=== PATIENT | female | born 1940 | race Caucasian/White ===

== ENCOUNTER 2018-03-08 06:35 | Day surgery (SDC) | payer MEDICARE, OTHER ==
[2018-03-08] MEDS ORDERED: fentaNYL 100 MCG/2 ML SDV ONE (06:49)
[2018-03-08] MEDS ORDERED: Midazolam 1 MG/ML 2 ML SDV ONE (06:49)
[2018-03-08] MEDS ORDERED: Propofol 200 MG/20 ML SDV ONE (06:49)
[2018-03-08] MEDS ORDERED: Lactated Ringers 1,000 ML IV SCH (07:00)
[2018-03-08 09:24] VITALS: BP 153/67
--- NOTE | 2018-03-08 12:40 | OR ---
DATE OF PROCEDURE: 03/08/2018 PREOPERATIVE DIAGNOSIS: History of colon polyps. POSTOPERATIVE DIAGNOSES: Diverticulosis, cecal polyp, history of polyps. PROCEDURE: Colonoscopy to the cecum with biopsy resection of cecal polyp. SURGEON: Joel Guzmán M.D. ANESTHESIA: IV anesthesia with monitored anesthesia care. INDICATION: This 77-year-old white female is referred for a colonoscopy because of a history of colon polyps. She says her last colonoscopic exam was done about 3 years ago. I counseled her for the procedure, including risks and alternatives, and she gave her informed consent to proceed. DESCRIPTION OF PROCEDURE: The patient was placed in the left lateral decubitus position. IV anesthesia was administered by the Anesthesia Service. Time-out was held. A rectal exam was performed, which was unremarkable. The flexible video Olympus colonoscope was introduced through her anus, up her rectum, and out her colon, all the way to the cecum. En route, we saw a few scattered left-sided diverticula. There was no bleeding or inflammation associated with them. In the cecum, we saw a sessile polyp that was fairly small. We removed this with multiple bites of the biopsy forceps. The scope was then slowly withdrawn, examining the mucosa throughout. No additional mucosal abnormalities were noted. The scope was retroflexed in the rectum with the distal rectum appearing unremarkable. The scope was straightened and removed. She tolerated the procedure well. Joel Guzmán MD /[id number]
== END 2018-03-08 09:27 | disposition home or self-care (01) ==
LOC: JP.SDS 06:35
PROVIDERS: ATTEND Surgery
DX: Z12.11 Encounter for screening for malignant neoplasm of colon (principal); D12.0 Benign neoplasm of cecum; K57.30 Diverticulosis of large intestine without perforation or abscess without bleeding; I10 Essential (primary) hypertension; E78.5 Hyperlipidemia, unspecified; E11.9 Type 2 diabetes mellitus without complications; Z91.048 Other nonmedicinal substance allergy status; Z86.010 Personal history of colon polyps
CPT/HCPCS: 45380; 88305; J2250; J2704; J3010; J7120

== ENCOUNTER → 2021-03-24 | Day surgery (SDC) | payer MEDICARE ==
[~2021-03-24] MED LIST: Dextrose 5%-Lactated Ringers 1,000 ML IV SCH; Propofol 200 MG/20 ML SDV ONE; fentaNYL 100 MCG/2 ML SDV ONE
[2021-03-24 10:52] VITALS: BP 136/81; PULSE 64
--- NOTE | 2021-04-12 15:34 | OR ---
DATE OF PROCEDURE: 03/24/2021 SURGEON: Shayne Head MD PREOPERATIVE DIAGNOSIS: History of colon polyps. POSTOPERATIVE DIAGNOSES: 1. No recurrent polyps. 2. Uncomplicated left colonic diverticulosis. OPERATIVE PROCEDURE: Flexible colonoscopy. ANESTHESIA: IV sedation. INDICATION FOR PROCEDURE: This is an 80-year-old female presenting with history of colon polyps for followup colonoscopy. Plan is to proceed with colonoscopy with biopsies and/or polypectomy as indicated. Potential risks including bleeding and perforation were discussed and the patient wishes to proceed. DETAILS OF PROCEDURE: The patient was taken to the operating room and placed in a left lateral decubitus position. IV sedation was administered, after which the initial digital rectal exam was performed and was unremarkable. Colonoscope was then passed to the level of the rectum with retroflexion revealing uncomplicated hemorrhoidal columns. Scope was eventually passed to the level of the cecum. The prep was fairly good, only small liquid stool was present. The patient had some uncomplicated left colonic diverticulosis, otherwise, there were no areas of colitis. No polyps or other signs of recurrent neoplasia. The procedure was then concluded. The patient was taken to the recovery room in satisfactory condition. Shayne Head MD /[id number]
== END ==
LOC: JP.SDS 07:14
PROVIDERS: ATTEND Surgery
DX: K64.9 Unspecified hemorrhoids (principal); K57.30 Diverticulosis of large intestine without perforation or abscess without bleeding; I10 Essential (primary) hypertension; E03.9 Hypothyroidism, unspecified; E78.5 Hyperlipidemia, unspecified; Z91.09 Other allergy status, other than to drugs and biological substances; Z86.010 Personal history of colon polyps
CPT/HCPCS: 82947; J2704; J3010; J7121